=== PATIENT | male | born 1970 ===

== ENCOUNTER 2017-01-15 17:48 | Inpatient (IN) | payer BC, OTHER ==
[~2017-01-15] VITALS: Ht 177.8 cm; Wt 87.0 kg
[2017-01-15] MEDS ORDERED: ACETAMINOPHEN 325 MG TAB PO PRN (20:00)
[2017-01-15] MEDS ORDERED: HYDROCODONE/APAP (5/325) TAB PO PRN ×2 (20:00)
[2017-01-15] MEDS ORDERED: SENNA TAB PO PRN (20:00)
[2017-01-15 20:01] VITALS: Ht 177.8 cm; Wt 87.0 kg
[2017-01-15] MEDS: DOCUSATE SODIUM 100 MG CAP PO SCH (20:59)
[2017-01-15] MEDS: LEVETIRACETAM 500 MG TAB PO SCH (20:59)
[2017-01-15 21:03] VITALS: BP 122/82; PULSE 84; RESP 18
[2017-01-15] MEDS: METOPROLOL 25 MG TAB PO SCH (21:05)
[2017-01-15 22:34] LABS: ADD UMIC NO; URINE BILIRUBIN (Dip) NEGATIVE (NEGATIVE); URINE BLOOD (Dip) NEGATIVE (NEGATIVE); URINE COLOR LT. YELLOW (YELLOW); URINE GLUCOSE (Dip) NEGATIVE (NEGATIVE); URINE KETONES (Dip) NEGATIVE (NEGATIVE); URINE LEUKOCYTE ESTERASE (Dip) NEGATIVE (NEGATIVE); URINE NITRITE (Dip) NEGATIVE (NEGATIVE); URINE TOTAL PROTEIN (Dip) NEGATIVE (NEGATIVE); URINE UROBILINOGEN (Dip) 1.0 E.U./dL (0.1-1.0)
[2017-01-16 07:30] VITALS: BP 126/86; RESP 18
[2017-01-16 07:48] LABS: ADD SCAN DIFF NO
[2017-01-16 07:52] LABS: BASOPHIL # 0.1 10^3/ul (0.0-0.1); BASOPHILS % 0.7 % (0.0-2.0); EOSINOPHILS # 0.4 10^3/ul (0.0-0.5); EOSINOPHILS % 5.4 % (0.0-7.0); HEMATOCRIT 40.9 % (42.0-52.0); HEMOGLOBIN 13.6 g/dl (14.0-18.0); LYMPHOCYTES # 1.2 10^3/ul (0.8-2.9); LYMPHOCYTES % 17.6 % (15.0-51.0); MEAN CORPUSCULAR HEMOGLOBIN 30.1 pg (29.0-33.0); MEAN CORPUSCULAR HGB CONC 33.3 g/dl (32.0-37.0); MEAN CORPUSCULAR VOLUME 90.5 fl (82.0-101.0); MONOCYTE # 0.5 10^3/ul (0.3-0.9); MONOCYTES % 7.6 % (0.0-11.0); NEUTROPHIL # 4.7 10^3/ul (1.6-7.5); NEUTROPHILS % 68.3 % (39.0-77.0); PLATELET COUNT 310 10^3/UL (140-415); RED BLOOD COUNT 4.52 10^6/ul (4.70-6.10); RED CELL DISTRIBUTION WIDTH 12.1 % (11.5-14.5); WHITE BLOOD COUNT 6.9 10^3/ul (4.8-10.8)
[2017-01-16 08:08] LABS: ALBUMIN 3.6 g/dl (3.3-4.9); POTASSIUM 4.5 mmol/L (3.5-5.1)
[2017-01-16 08:11] LABS: ALBUMIN/GLOBULIN RATIO 0.83; BILIRUBIN,INDIRECT 0.4 mg/dl (0-1.1); BILIRUBIN,TOTAL 0.4 mg/dl (0.2-1.3); CREATININE 0.81 mg/dl (0.61-1.24); TOTAL PROTEIN 7.9 g/dl (6.1-8.1)
[2017-01-16] MEDS: DOCUSATE SODIUM 100 MG CAP PO SCH ×2 (09:27→20:47)
[2017-01-16] MEDS: LEVETIRACETAM 500 MG TAB PO SCH ×2 (09:27→20:47)
[2017-01-16] MEDS: LISINOPRIL 20 MG TAB PO SCH (09:27)
[2017-01-16] MEDS: METOPROLOL 25 MG TAB PO SCH ×2 (09:28→20:47)
--- NOTE | 2017-01-16 13:12 | CONS ---
DATE OF ADMISSION: 01/15/2017 DATE OF CONSULTATION: 01/16/2017 TYPE OF CONSULTATION: Rehabilitation post-admission physician evaluation REHABILITATION IMPAIRMENT CATEGORY: Acute encephalopathy/hydrocephalus status post CASKET ASSEMBLER shunt. ACTIVE COMORBIDITIES: 1. Left proximal humeral fracture, nonweightbearing. 2. Hypertension. 3. History of congenital hydrocephalus. 4. Impairments in self-care, mobility and cognition. HISTORY OF PRESENT ILLNESS: The patient is a 46-year-old gentleman with a history of congenital hy drocephalus who was noted to have left upper extremity weakness in addition to lethargy. Workup did reveal a proximal left upper extremity fracture in addition to encephalopathy. Neurosurgery was co nsulted and the patient underwent ventriculoperitoneal shunt placed on 01/11/2017. The patient's po stoperative course has been notable for pain, impairments in self-care and mobility as compared to [facility]. The patient has been cleared to transfer to the rehabilitation unit for comprehensive inte rdisciplinary rehab care. FUNCTIONAL HISTORY: Prior to recent events, he was independent in self-care tasks and mobility. Cu rrently, requires maximal assist for self-care and mobility tasks. SOCIAL HISTORY: The patient reportedly lives at home with family and hopes to return there upon dis charge. PAST MEDICAL HISTORY: 1. Congenital hydrocephalus with history of shunt placement at 3 weeks and 7 years old. 2. Hypertension. CURRENT MEDICATIONS: 1. Colace 100 mg b.i.d. 2. Levetiracetam 1 tab b.i.d. 3. Lisinopril 20 mg p.o. daily. 4. Metoprolol 25 mg b.i.d. 5. Senokot 1 tab p.o. at bedtime. ALLERGIES: NO KNOWN DRUG ALLERGIES. PHYSICAL EXAMINATION: VITAL SIGNS: The patient is currently afebrile with stable vital signs. HEENT: Extraocular motions intact. Oropharynx clear. NECK: Supple. LUNGS: Clear anteriorly. CARDIAC: S1, S2. ABDOMEN: Soft, nontender, positive bowel sounds. NEUROLOGIC: He is awake and alert and oriented to person and month. He will follow simple 1-step c ommands. He demonstrates good strength in the right upper extremity and bilateral lower extremities . Left upper extremity, he is able to wiggle fingers. PLAN: The patient has been admitted for comprehensive interdisciplinary acute rehab and is anticipa roberto to tolerate 3 hours of daily therapy in divided doses for at least 5/7 days a week. Treatment p kareen will include: 1. Physical therapy to focus on bed mobility, transfers, and household ambulation with the goal of having the patient reach standby assist level. 2. Occupational therapy to focus on hygiene, grooming, dressing, bathing, and toileting activities with the goal of having the patient reach standby assist level. 3. Speech therapy for full cognitive assessment and retraining and assessment for dysphagia with th e goal of having the patient return to baseline cognition. 4. Rehabilitation nursing for carryover of therapeutic interventions, the goal of continent of deborah l and bladder, and the goal of patient and family education with regards to the aforementioned issue s. REHABILITATION BARRIER: Left upper extremity nonweightbearing. INTERVENTION FOR BARRIER: Comprehensive interdisciplinary approach. ESTIMATED LENGTH OF STAY: 10 days. DISPOSITION GOAL: Home. I acknowledge that I performed a full physical examination on this patient within 24 hours of admiss ion to the rehabilitation unit. I believe the patient is a good candidate for comprehensive interdi sciplinary rehab care and is anticipated to make reasonable goals in a reasonable period of time as outlined above. Dictated By: ARIELLE KEEN/KELBY Conf#: [id number] DID#: [id number]
--- NOTE | 2017-01-16 13:19 | HP ---
DATE OF ADMISSION: 01/15/2017 CHIEF COMPLAINT: Encephalopathy, status post FAMILY DAY CARE WORKER shunt. Left humeral fracture. HISTORY OF PRESENT ILLNESS: This is a 46-year-old male with a past medical history of congenital hy drocephalus, status post FAMILY DAY CARE WORKER shunt, who was brought into outside hospital for left upper extremity we akness and lethargy. The patient's history begins when he was born, had placement of FAMILY DAY CARE WORKER shunt when he was 3 weeks old, and had revision at age 77 years old. Since then patient had no further revision of the shunt. Patient apparently was in his usual state of health until 1 to 2 days prior to admis clint, when he started having left shoulder pain, weakness, and apparently had a fall. The patient w as brought into an outside hospital, where he had MRI of his left upper extremity which showed fract ure of the surgical neck of the proximal humerus. Patient had a CT scan of the head which was negat vance for any intracranial hemorrhage or extraaxial fluid collection. CT scan/MRI did show brain dysm orphia. The patient was evaluated by neurosurgery, with a recommendation of a placement of a new FAMILY DAY CARE WORKER shunt. The patient had the placement of a left coronial ventriculoperitoneal shunt on 01/11/[address] without complications. Patient also had apparent orthopedic evaluation for his left hum eral fracture which was noted to be nondisplaced. As a result, no surgery was performed. During e hospital course the patient's encephalopathy clinically improved. Patient had no episodes of hemo ptysis, hematemesis, hematochezia. Patient, however, had a significant decline in his premorbid con dition. As a result he was transferred over to [facility] for continued care. Upon my evaluation, the patient at this time is currently lethargic, but alert and oriented x4. Den ies any chest pain, fevers, chills, nausea, vomiting. PAST MEDICAL HISTORY: As stated above. History of congenital hydrocephalus, history of FAMILY DAY CARE WORKER shunt pl acement, history of hypertension. PAST SURGICAL HISTORY: Status post FAMILY DAY CARE WORKER shunt placement at age 3 weeks with revision at 7 years, stat us post FAMILY DAY CARE WORKER shunt placement revision on 01/11. ALLERGIES: NO KNOWN DRUG ALLERGIES. FAMILY HISTORY: No family history of kidney disease or heart disease. SOCIAL HISTORY: Does not drink, smoke, or do drugs. MEDICATIONS: Patient's medications have been reviewed and reconciled. REVIEW OF SYSTEMS: A 14-point review of systems was conducted. Pertinent positives as stated in HP I, otherwise negative. PHYSICAL EXAMINATION: VITAL SIGNS: Blood pressure 122/82, respirations 18, pulse 84, temperature 98.5. HEENT: Head shows a left parietal craniotomy surgical site with magdaleno that are clean, dry, and in tact. Positive deformity. Pupils are reactive to light. NECK: Supple. HEART: Regular rate. LUNGS: Show diminished breath sounds at the base. ABDOMEN: Soft, nontender to palpation. No rebound or guarding. EXTREMITIES: Negative for clubbing and cyanosis. No edema. DERMATOLOGIC: No rashes. MUSCULOSKELETAL: Patient has weakness of the left upper extremity with limitations of abduction and adduction, flexion, extension. LABORATORY DATA: Sodium 142, potassium 4.5, chloride 103, BUN 16, creatinine 0.81, white count 6.9, hemoglobin 13.6, hematocrit 40.9, platelet count is 310. Patient's urinalysis is negative. Patient's outside MRI of the brain has been reviewed. MRI of the left shoulder has been reviewed. ASSESSMENT AND PLAN: This is a 46-year-old male who presents with: 1. Encephalopathy, hydrocephalus, and cerebellar tonsillar herniation. Patient is status post vent riculoperitoneal shunt placement on 01/11. Currently the patient is clinically stable. Plan at thi s point is to monitor closely. Patient will continue Keppra for seizure prophylaxis. We will monit or blood pressures and adjust medications in order to maintain systolic pressure less than 140. Claire terrell to follow up with neurosurgeon, in the outpatient setting. 2. Left upper extremity nondisplaced humeral fracture. Patient was evaluated by orthopedics. No p kareen for surgical intervention. He will continue physical therapy. 3. Hypertension. Continue current blood pressure regimen. 4. History of congenital hydrocephalus, status post ventriculoperitoneal shunt placement with caty ion. As stated above, we will continue medical management. He will follow up with neurosurgery in the outpatient setting. 5. Mild anemia. Continue to monitor hemoglobin and hematocrit levels. 6. Gastrointestinal/deep vein thrombosis prophylaxis. Continue proton pump inhibitor and sequentia l leg squeezers. 7. Constipation. Continue current bowel regimen. 8. Seizure prophylaxis. Continue Keppra. Please note, I spent up to 25 minutes of [id number]-[id number]-[id number] time with the patient . In discussing code st atus, the patient is full code. Dictated By: MILI BASS/NTS Conf#: [id number] DID#: [id number] CC: ARIELLE REILLY MD;*EndCC*
[2017-01-16] MEDS: POLYETHYLENE GLYCOL 17 GM PACKET PO PRN (15:52)
[2017-01-16 20:00] VITALS: BP 107/57; RESP 18
--- NOTE | 2017-01-16 20:14 | CONS ---
DATE OF ADMISSION: 01/15/2017 DATE OF CONSULTATION: 01/16/2017 TYPE OF CONSULTATION: Psychological. REFERRING PHYSICIAN: Cayla Bonilla MD CONSULTING PSYCHOLOGIST: Brina Sinclair, PhD REASON FOR CONSULTATION: This consultation was requested by Dr. Larisa Bonilla in order to evaluate the cognitive and emotional functioning of this patient related to his present medical condition. HISTORY OF PRESENT ILLNESS: The patient is a 46-year-old male. The patient has had some brain trau ma and had some surgery and developed some encephalopathy. The patient was cleared medically and se nt to the acute rehabilitation unit for acute multidisciplinary rehabilitation. The patient did not actually know all the things that happened to him in regard to his medical condition. The patient was just admitted to the unit last night. The patient did report that he has had some kind of seizu re. There is a question whether the patient is functioning in regard to his encephalopathy. The pa tient is motivated to get better and does want to return to his previous level of functioning and re turn home. FAMILY AND SOCIAL HISTORY: The patient reports that he lives in a home with his dad. The patient r eports that it is his father's home. He wants to return there after discharge. SUBSTANCE USE: The patient denies any use of alcohol or other drugs. The patient reports he does n ot smoke. MEDICATIONS: The patient is currently not on any psychotropic medications. MENTAL STATUS EXAMINATION: APPEARANCE: The patient was seen in his wheelchair. He appeared to be of average height and weight . The patient is left-handed. BEHAVIOR: The patient was cooperative during the consultation. The patient did attempt to answer a ll questions presented to him by the interviewer. MOOD AND AFFECT: The patient's mood appears to be slightly depressed. Affect does appear to be sli ghtly anxious. PERCEPTION: The patient reports no hallucinations or delusions. The patient was alert to person, p lace, situation and time. MEMORY AND COGNITION: The patient's memory and cognition are actually basically intact given the fa ct that he has had brain surgery and initially had encephalopathy. The patient was able to say the name of the hospital. The patient was able to say the month and the year. The patient was able to say who the tray service worker is. The patient was unable to say who the mayor [facility] is or the governor of the state. The patient, however, was able to spell "world" backwards. Th e patient was also able to do 5 serial-7 subtractions from 100, but he made an error, and then he co rrected his own error and then went 2 steps further after that correctly. Overall, given the patien t's present medical condition, the patient's cognitive abilities appear to be adequate. INTELLIGENCE: Intelligence appeared to fall in the average range. INSIGHT: Fair. JUDGMENT: Fair. THOUGHT CONTENT: The patient is concerned about his current medical condition. The patient does wa nt to return home and continue to do what he was doing prior to all his medical problems. The patie nt is motivated to get better. DISCUSSION: The patient can likely benefit from some cognitive/behavioral psychotherapy while he is on the unit. This psychotherapy would focus on his underlying level of frustration about his medic al condition. 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 Thank you very much, Dr. Larisa Bonilla, for referring this individual. Please do not hesitate to ca ll if you have additional questions. Dictated By: BRINA SINCLAIR PHD RK/KELBY Conf#: [id number] DID#: [id number]
[2017-01-17 07:21] LABS: ADD SCAN DIFF NO
[2017-01-17 07:31] LABS: BASOPHIL # 0.1 10^3/ul (0.0-0.1); BASOPHILS % 0.9 % (0.0-2.0); EOSINOPHILS # 0.3 10^3/ul (0.0-0.5); EOSINOPHILS % 3.5 % (0.0-7.0); HEMOGLOBIN 13.7 g/dl (14.0-18.0); LYMPHOCYTES # 1.5 10^3/ul (0.8-2.9); LYMPHOCYTES % 20.2 % (15.0-51.0); MEAN CORPUSCULAR HEMOGLOBIN 30.2 pg (29.0-33.0); MEAN CORPUSCULAR HGB CONC 32.6 g/dl (32.0-37.0); MEAN CORPUSCULAR VOLUME 92.5 fl (82.0-101.0); MONOCYTE # 0.6 10^3/ul (0.3-0.9); MONOCYTES % 7.8 % (0.0-11.0); NEUTROPHILS % 67.2 % (39.0-77.0); PLATELET COUNT 340 10^3/UL (140-415); RED BLOOD COUNT 4.54 10^6/ul (4.70-6.10); RED CELL DISTRIBUTION WIDTH 12.2 % (11.5-14.5); WHITE BLOOD COUNT 7.4 10^3/ul (4.8-10.8)
[2017-01-17 07:40] LABS: POTASSIUM 4.3 mmol/L (3.5-5.1)
[2017-01-17 07:43] LABS: CREATININE 0.88 mg/dl (0.61-1.24)
[2017-01-17 07:44] LABS: CALCIUM 9.2 mg/dl (8.4-10.2); MAGNESIUM 2.3 mg/dl (1.7-2.5); PHOSPHORUS 3.6 mg/dl (2.5-4.9)
[2017-01-17] MEDS: DOCUSATE SODIUM 100 MG CAP PO SCH ×2 (09:47→20:34)
[2017-01-17] MEDS: LEVETIRACETAM 500 MG TAB PO SCH ×2 (09:47→20:34)
[2017-01-17] MEDS: LISINOPRIL 20 MG TAB PO SCH (09:47)
[2017-01-17] MEDS: METOPROLOL 25 MG TAB PO SCH ×2 (09:48→20:36)
--- NOTE | 2017-01-17 09:55 | PN ---
DATE: 01/17/2017 SUBJECTIVE: The patient is stable. No acute events noted. No fevers or chills. OBJECTIVE: VITAL SIGNS: Blood pressure 107/57, respirations 18, pulse 87, temperature 98.4. HEENT: Head shows a noted craniotomy scar, noted deformity, no change. NECK: Supple. HEART: Regular rate. LUNGS: Showed diminished breath sounds at the base. ABDOMEN: Soft, nontender to palpation. No rebound or guarding. EXTREMITIES: Negative for clubbing or cyanosis. No edema. DERMATOLOGIC: No rashes. MUSCULOSKELETAL: Have no joint effusion. NEUROLOGIC: No change in exam. MEDICATIONS: The patient's medications have been reviewed. LABORATORY DATA: Shows sodium 145, potassium 4.3, BUN 17, creatinine 0.88. White count 7.4, hemogl obin 13.7, platelet count is 340. ASSESSMENT AND PLAN: 1. Encephalopathy and hydrocephalus/cerebellar tonsillar herniation. The patient is status post CLOCKMAKER APPRENTICE shunt placement on 01/11/2017. The patient is currently stable. At this point will continue the manny shoemaker treatment plan, continue Keppra for seizure prophylaxis. The patient will follow up with [facility] in the outpatient setting. Continue to monitor. 2. Left upper extremity nondisplaced fracture. The patient is weightbearing. Continue physical the rapy. 3. Hypertension. Continue the current blood pressure regimen. 4. History of congenital hydrocephalus, status post CLOCKMAKER APPRENTICE shunt placement with revision. Continue to monitor. 5. Anemia. Continue to monitor H and H levels. 6. Constipation. Continue the current bowel regimen. 7. Seizure prophylaxis. Continue Keppra. 8. Gastrointestinal and deep venous thrombosis prophylaxis. Continue PPI and sequential leg squeeze rs. 9. Mild hypernatremia. Will encourage free water intake. Dictated By: PATTIE CULVER/KELBY Conf#: [id number] DID#: [id number]
--- NOTE | 2017-01-17 12:25 | CONS ---
Date/Time of Note Date/Time of Note DATE: 01/17/17 TIME: 12:25 Consult Date/Type/Reason Admit Date/Time Jan 15, 2017 at 18:32 Initial Consult Date Subjective Feeling better today Objective pulm-cta abd-soft Vital Signs Date Time Temp Pulse Resp B/P Pulse Ox O2 Delivery O2 Flow Rate FiO2 01/16/17 20:00 98.4 87 18 107/57 97 01/15/17 21:03 Room Air Intake and Output 01/16/17 01/16/17 01/17/17 15:00 23:00 07:00 Intake Total 660 ml 500 ml Output Total 550 ml Balance 660 ml -50 ml Results/Medications Result Diagram: 01/17/17 0630 01/17/17 0630 Results 24 hrs Laboratory Tests Test 01/17/17 06:30 Anion Gap 17 H Basophils # 0.1 Basophils % 0.9 Blood Urea Nitrogen 17 Calcium Level 9.2 Carbon Dioxide Level 29 Chloride Level 103 Creatinine 0.88 Eosinophils # 0.3 Eosinophils % 3.5 Glucose Level 95 Hematocrit 42.0 Hemoglobin 13.7 L Lymphocytes # 1.5 Lymphocytes % 20.2 Magnesium Level 2.3 Mean Corpuscular Hemoglobin 30.2 Mean Corpuscular Hemoglobin Concent 32.6 Mean Corpuscular Volume 92.5 Mean Platelet Volume 10.0 Monocytes # 0.6 Monocytes % 7.8 Neutrophils # 5.0 Neutrophils % 67.2 Nucleated Red Blood Cells # 0.0 Nucleated Red Blood Cells % 0.0 Phosphorus Level 3.6 Platelet Count 340 Potassium Level 4.3 Red Blood Count 4.54 L Red Cell Distribution Width 12.2 Sodium Level 145 H White Blood Count 7.4 Medications Current Medications Acetaminophen (Tylenol Tab) 650 mg Q4H PRN PO PAIN LEVEL 1-3; Start 01/15/17 at 20:00 Acetaminophen/ Hydrocodone Bitart ([place] (5/325)) 1 tab Q4H PRN PO PAIN LEVEL 4 -6; Start 01/15/17 at 20:00 Acetaminophen/ Hydrocodone Bitart ([place] (5/325)) 2 tab Q4H PRN PO PAIN LEVEL 7 -10 Last administered on 01/16/17 15:52; Admin Dose 2 TAB; Start 01/15/17 at 20: 00 Docusate Sodium (Colace) 100 mg BID PO Last administered on 01/17/17 09:47; Admin Dose 100 MG; Start 01/15/17 at 21:00 Levetiracetam (Keppra) 500 mg BID PO Last administered on 01/17/17 09:47; Admin Dose 500 MG; Start 01/15/17 at 21:00 Lisinopril (Zestril) 20 mg DAILY PO Last administered on 01/17/17 09:47; Admin Dose 20 MG; Start 01/16/17 at 09:00 Metoprolol Tartrate (Lopressor) 25 mg BID PO Last administered on 01/17/17 09: 48; Admin Dose 25 MG; Start 01/15/17 at 21:00 Polyethylene Glycol (Miralax) 17 gm DAILY PRN PO CONSTIPATION Last administered on 01/16/17 15:52; Admin Dose 17 GM; Start 01/15/17 at 20:00 Senna (Senokot) 1 tab DAILY PRN PO CONSTIPATION; Start 01/15/17 at 20:00 Assessment/Plan Additional Assessment/Plan Rehab- Acute encephalopathy/hydrocephalus status post HEALTH TECH shunt. Continue treatment plan Left proximal humeral fracture, nonweightbearing. Hypertension. History of congenital hydrocephalus. ARIELLE REILLY MD Jan 17, 2017 12:25
[2017-01-17 16:22] VITALS: BP 140/90; RESP 16
[2017-01-17 20:04] VITALS: BP 131/80; RESP 18
[2017-01-18] MEDS: DOCUSATE SODIUM 100 MG CAP PO SCH ×2 (09:10→20:17)
[2017-01-18] MEDS: LEVETIRACETAM 500 MG TAB PO SCH ×2 (09:10→20:17)
[2017-01-18] MEDS: METOPROLOL 25 MG TAB PO SCH ×2 (09:11→20:17)
[2017-01-18] MEDS: LISINOPRIL 20 MG TAB PO SCH (09:11)
[2017-01-18 09:51] VITALS: BP 130/82; RESP 20
--- NOTE | 2017-01-18 10:06 | PN ---
DATE: 01/18/2017 01/18/2017 SUBJECTIVE: The patient is stable, no acute events overnight. No fevers, chills, nausea , vomiting. No shortness of breath. OBJECTIVE: VITAL SIGNS: Blood pressure 131/80, respirations are 18, pulse 79, temperature 98.2. HEENT: Head is normocephalic. The patient has a noted craniotomy scar. NECK: Supple. HEART: Regular rate. LUNGS: Show diminished breath sounds at the base. ABDOMEN: Soft, nontender to palpation, no rebound or guarding. EXTREMITIES: Negative for clubbing, cyanosis, no edema. DERMATOLOGIC: No rashes. MUSCULOSKELETAL: No joint effusions. NEUROLOGIC: No change in exam. MEDICATIONS: The patient's medications have been reviewed. LABORATORY DATA: Has been reviewed. No new labs. ASSESSMENT AND PLAN: 1. Hydrocephalus The patient is status post ventriculoperitoneal shunt placement on 01/11/2017. Th e patient is currently stable. Continue current medical management. Continue Keppra for seizure pr ophylaxis. The patient to follow up with neurosurgery in an outpatient setting. Continue to monito r. 2. Left upper extremity nondisplaced fracture. The patient is weightbearing. Continue physical th erapy. 3. Hypertension. Continue current blood pressure regimen. 4. History of congenital hydrocephalus status post ventriculoperitoneal shunt replacement and caty ion as stated above. 5. Anemia. Continue to monitor hemoglobin and hematocrit levels. 6. Constipation. Continue current bowel regimen. 7. Seizure prophylaxis. Continue Keppra. 8. Mild hyponatremia, resolved. 9. Gastrointestinal and deep venous thrombosis prophylaxis. Continue proton pump inhibitor and seq uential leg squeezers. Dictated By: PATTIE CULVER/KELBY Conf#: [id number] DID#: [id number]
--- NOTE | 2017-01-18 11:21 | CONS ---
Date/Time of Note Date/Time of Note DATE: 01/18/17 TIME: 11:20 Consult Date/Type/Reason Admit Date/Time Jan 15, 2017 at 18:32 Subjective Reports pain improved Objective pulm-cta min assist ambulation Vital Signs Date Time Temp Pulse Resp B/P Pulse Ox O2 Delivery O2 Flow Rate FiO2 01/18/17 09:51 97.9 76 20 130/82 96 01/15/17 21:03 Room Air Results/Medications Result Diagram: 01/17/17 0630 01/17/17 0630 Medications Current Medications Acetaminophen (Tylenol Tab) 650 mg Q4H PRN PO PAIN LEVEL 1-3; Start 01/15/17 at 20:00 Acetaminophen/ Hydrocodone Bitart ([place] (5/325)) 1 tab Q4H PRN PO PAIN LEVEL 4 -6; Start 01/15/17 at 20:00 Acetaminophen/ Hydrocodone Bitart ([place] (5/325)) 2 tab Q4H PRN PO PAIN LEVEL 7 -10 Last administered on 01/16/17 15:52; Admin Dose 2 TAB; Start 01/15/17 at 20: 00 Docusate Sodium (Colace) 100 mg BID PO Last administered on 01/18/17 09:10; Admin Dose 100 MG; Start 01/15/17 at 21:00 Levetiracetam (Keppra) 500 mg BID PO Last administered on 01/18/17 09:10; Admin Dose 500 MG; Start 01/15/17 at 21:00 Lisinopril (Zestril) 20 mg DAILY PO Last administered on 01/18/17 09:11; Admin Dose 20 MG; Start 01/16/17 at 09:00 Metoprolol Tartrate (Lopressor) 25 mg BID PO Last administered on 01/18/17 09: 11; Admin Dose 25 MG; Start 01/15/17 at 21:00 Polyethylene Glycol (Miralax) 17 gm DAILY PRN PO CONSTIPATION Last administered on 01/16/17 15:52; Admin Dose 17 GM; Start 01/15/17 at 20:00 Senna (Senokot) 1 tab DAILY PRN PO CONSTIPATION; Start 01/15/17 at 20:00 Assessment/Plan Additional Assessment/Plan Rehab- Acute encephalopathy/hydrocephalus status post INFORMATION TECHNOLOGY AUDIT MANAGER shunt. Continue rehab program Left proximal humeral fracture, nonweightbearing-brace in place Hypertension. History of congenital hydrocephalus. ARIELLE REILLY MD Jan 18, 2017 11:20
[2017-01-18 19:42] VITALS: BP 144/88; RESP 18
[2017-01-19 08:17] VITALS: BP 128/79; RESP 18
[2017-01-19] MEDS: DOCUSATE SODIUM 100 MG CAP PO SCH ×2 (08:50→20:56)
[2017-01-19] MEDS: METOPROLOL 25 MG TAB PO SCH ×2 (08:52→20:57)
[2017-01-19] MEDS: LISINOPRIL 20 MG TAB PO SCH (08:52)
[2017-01-19] MEDS: LEVETIRACETAM 500 MG TAB PO SCH ×2 (08:52→20:57)
[2017-01-19 08:56] VITALS: BP 123/74; PULSE 78; RESP 16
--- NOTE | 2017-01-19 09:32 | CONS ---
Date/Time of Note Date/Time of Note DATE: 01/19/17 TIME: 09:30 Consult Date/Type/Reason Admit Date/Time Jan 15, 2017 at 18:32 Initial Consult Date Subjective no new c/o. good uop. meds noted. brayan alcantara. Objective Vital Signs Date Time Temp Pulse Resp B/P Pulse Ox O2 Delivery O2 Flow Rate FiO2 01/19/17 08:56 78 16 123/74 97 Room Air 78 01/19/17 08:17 97.6 Intake and Output 01/18/17 01/18/17 01/19/17 15:00 23:00 07:00 Intake Total 200 ml Balance 200 ml HEENT: Head is normocephalic. The patient has a noted craniotomy scar. NECK: Supple. HEART: Regular rate. LUNGS: Show diminished breath sounds at the base. ABDOMEN: Soft, nontender to palpation, no rebound or guarding. EXTREMITIES: Negative for clubbing, cyanosis, no edema. DERMATOLOGIC: No rashes. MUSCULOSKELETAL: No joint effusions. NEUROLOGIC: No change in exam. Results/Medications Result Diagram: 01/17/1730 01/17/1730 Medications Current Medications Acetaminophen (Tylenol Tab) 650 mg Q4H PRN PO PAIN LEVEL 1-3; Start 01/15/17 at 20:00 Acetaminophen/ Hydrocodone Bitart ([place] (5/325)) 1 tab Q4H PRN PO PAIN LEVEL 4 -6; Start 01/15/17 at 20:00 Acetaminophen/ Hydrocodone Bitart ([place] (5/325)) 2 tab Q4H PRN PO PAIN LEVEL 7 -10 Last administered on 01/16/17 15:52; Admin Dose 2 TAB; Start 01/15/17 at 20: 00 Docusate Sodium (Colace) 100 mg BID PO Last administered on 01/18/17 20:17; Admin Dose 100 MG; Start 01/15/17 at 21:00 Levetiracetam (Keppra) 500 mg BID PO Last administered on 01/19/17 08:52; Admin Dose 500 MG; Start 01/15/17 at 21:00 Lisinopril (Zestril) 20 mg DAILY PO Last administered on 01/19/17 08:52; Admin Dose 20 MG; Start 01/16/17 at 09:00 Metoprolol Tartrate (Lopressor) 25 mg BID PO Last administered on 01/19/17 08: 52; Admin Dose 25 MG; Start 01/15/17 at 21:00 Polyethylene Glycol (Miralax) 17 gm DAILY PRN PO CONSTIPATION Last administered on 01/16/17 15:52; Admin Dose 17 GM; Start 01/15/17 at 20:00 Senna (Senokot) 1 tab DAILY PRN PO CONSTIPATION; Start 01/15/17 at 20:00 Assessment/Plan Chief Complaint/Hosp Course 1. Hydrocephalus The patient is status post ventriculoperitoneal shunt placement on 01/11/2017. The patient is currently stable. Continue current medical management. Continue Keppra for seizure prophylaxis. The patient to follow up with neurosurgery in an outpatient setting. Continue to monitor. 2. Left upper extremity nondisplaced fracture. The patient is weightbearing. Continue physical therapy. 3. Hypertension. Continue current blood pressure regimen. 4. History of congenital hydrocephalus status post ventriculoperitoneal shunt replacement and revision as stated above. 5. Anemia. Continue to monitor hemoglobin and hematocrit levels. 6. Constipation. Continue current bowel regimen. 7. Seizure prophylaxis. Continue Keppra. 8. Mild hyponatremia, resolved. 9. Gastrointestinal and deep venous thrombosis prophylaxis. Continue proton pump inhibitor and sequential leg squeezers. Problems: HARMONY SCHULTZ MD Jan 19, 2017 09:31
--- NOTE | 2017-01-19 09:46 | CONS ---
Date/Time of Note Date/Time of Note DATE: 01/19/17 TIME: 09:46 Consult Date/Type/Reason Admit Date/Time Jan 15, 2017 at 18:32 Subjective Comfortable Objective Vital Signs Date Time Temp Pulse Resp B/P Pulse Ox O2 Delivery O2 Flow Rate FiO2 01/19/17 08:56 78 16 123/74 97 Room Air 78 01/19/17 08:17 97.6 Intake and Output 01/18/17 01/18/17 01/19/17 15:00 23:00 07:00 Intake Total 200 ml Balance 200 ml pulm-cta abd-soft Results/Medications Result Diagram: 01/17/17 0630 01/17/17 0630 Medications Current Medications Acetaminophen (Tylenol Tab) 650 mg Q4H PRN PO PAIN LEVEL 1-3; Start 01/15/17 at 20:00 Acetaminophen/ Hydrocodone Bitart ([place] (5/325)) 1 tab Q4H PRN PO PAIN LEVEL 4 -6; Start 01/15/17 at 20:00 Acetaminophen/ Hydrocodone Bitart ([place] (5/325)) 2 tab Q4H PRN PO PAIN LEVEL 7 -10 Last administered on 01/16/17 15:52; Admin Dose 2 TAB; Start 01/15/17 at 20: 00 Docusate Sodium (Colace) 100 mg BID PO Last administered on 01/18/17 20:17; Admin Dose 100 MG; Start 01/15/17 at 21:00 Levetiracetam (Keppra) 500 mg BID PO Last administered on 01/19/17 08:52; Admin Dose 500 MG; Start 01/15/17 at 21:00 Lisinopril (Zestril) 20 mg DAILY PO Last administered on 01/19/17 08:52; Admin Dose 20 MG; Start 01/16/17 at 09:00 Metoprolol Tartrate (Lopressor) 25 mg BID PO Last administered on 01/19/17 08: 52; Admin Dose 25 MG; Start 01/15/17 at 21:00 Polyethylene Glycol (Miralax) 17 gm DAILY PRN PO CONSTIPATION Last administered on 01/16/17 15:52; Admin Dose 17 GM; Start 01/15/17 at 20:00 Senna (Senokot) 1 tab DAILY PRN PO CONSTIPATION; Start 01/15/17 at 20:00 Assessment/Plan Additional Assessment/Plan Rehab- Acute encephalopathy/hydrocephalus status post [employer] shunt. Continue rehab treatment plan Left proximal humeral fracture, nonweightbearing-brace in place Hypertension. History of congenital hydrocephalus. ARIELLE REILLY MD Jan 19, 2017 09:46
[2017-01-19] MEDS: POLYETHYLENE GLYCOL 17 GM PACKET PO PRN (12:44)
[2017-01-19 19:17] VITALS: BP 140/90; RESP 22
[2017-01-20 07:30] VITALS: BP 138/89; RESP 18
[2017-01-20 08:00] VITALS: BP 138/89; PULSE 77; RESP 18
[2017-01-20] MEDS: DOCUSATE SODIUM 100 MG CAP PO SCH ×2 (08:36→21:08)
[2017-01-20] MEDS: LEVETIRACETAM 500 MG TAB PO SCH ×2 (08:37→21:08)
[2017-01-20] MEDS: METOPROLOL 25 MG TAB PO SCH ×2 (08:37→21:08)
[2017-01-20] MEDS: LISINOPRIL 20 MG TAB PO SCH (08:37)
--- NOTE | 2017-01-20 09:48 | CONS ---
Date/Time of Note Date/Time of Note DATE: 01/20/17 TIME: 09:48 Consult Date/Type/Reason Admit Date/Time Jan 15, 2017 at 18:32 Subjective no new events comfortable. HEENT: Head is normocephalic. NECK: Supple. HEART: Regular rate. LUNGS: Show diminished breath sounds at the base. ABDOMEN: Soft, nontender to palpation without rebound or guarding. EXTREMITIES: Negative for clubbing, cyanosis. Trace edema. DERMATOLOGIC: No rashes. MUSCULOSKELETAL: No joint effusions. NEUROLOGIC: No change in exam. Objective Vital Signs Date Time Temp Pulse Resp B/P Pulse Ox O2 Delivery O2 Flow Rate FiO2 01/20/17 08:00 97.8 77 18 138/89 99 Room Air Intake and Output 01/19/17 01/19/17 01/20/17 15:00 23:00 07:00 Intake Total 1300 ml 1250 ml 1000 ml Output Total 1050 ml 1500 ml Balance 1300 ml 200 ml -500 ml Results/Medications Result Diagram: 01/17/1730 01/17/17 0630 Medications Current Medications Acetaminophen (Tylenol Tab) 650 mg Q4H PRN PO PAIN LEVEL 1-3; Start 01/15/17 at 20:00 Acetaminophen/ Hydrocodone Bitart ([place] (5/325)) 1 tab Q4H PRN PO PAIN LEVEL 4 -6; Start 01/15/17 at 20:00 Acetaminophen/ Hydrocodone Bitart ([place] (5/325)) 2 tab Q4H PRN PO PAIN LEVEL 7 -10 Last administered on 01/16/17 15:52; Admin Dose 2 TAB; Start 01/15/17 at 20: 00 Docusate Sodium (Colace) 100 mg BID PO Last administered on 01/20/17 08:36; Admin Dose 100 MG; Start 01/15/17 at 21:00 Levetiracetam (Keppra) 500 mg BID PO Last administered on 01/20/17 08:37; Admin Dose 500 MG; Start 01/15/17 at 21:00 Lisinopril (Zestril) 20 mg DAILY PO Last administered on 01/20/17 08:37; Admin Dose 20 MG; Start 01/16/17 at 09:00 Metoprolol Tartrate (Lopressor) 25 mg BID PO Last administered on 01/20/17 08: 37; Admin Dose 25 MG; Start 01/15/17 at 21:00 Polyethylene Glycol (Miralax) 17 gm DAILY PRN PO CONSTIPATION Last administered on 01/19/17 12:44; Admin Dose 17 GM; Start 01/15/17 at 20:00 Senna (Senokot) 1 tab DAILY PRN PO CONSTIPATION; Start 01/15/17 at 20:00 Assessment/Plan Chief Complaint/Hosp Course 1. Hydrocephalus The patient is status post ventriculoperitoneal shunt placement on 01/11/2017. The patient is currently stable. Continue current medical management. Continue Keppra for seizure prophylaxis. The patient to follow up with neurosurgery in an outpatient setting. Continue to monitor. 2. Left upper extremity nondisplaced fracture. The patient is weightbearing. Continue physical therapy. 3. Hypertension. Continue current blood pressure regimen. 4. History of congenital hydrocephalus status post ventriculoperitoneal shunt replacement and revision as stated above. 5. Anemia. Continue to monitor hemoglobin and hematocrit levels. 6. Constipation. Continue current bowel regimen. 7. Seizure prophylaxis. Continue Keppra. 8. Mild hyponatremia, resolved. 9. Gastrointestinal and deep venous thrombosis prophylaxis. Continue proton pump inhibitor and sequential leg squeezers. Problems: HARMONY SCHULTZ MD Jan 20, 2017 09:48
[2017-01-20 19:29] VITALS: RESP 23
[2017-01-20 19:34] VITALS: BP 133/84; RESP 20
[2017-01-21 08:00] VITALS: BP 134/86; PULSE 74; RESP 20
[2017-01-21] MEDS: METOPROLOL 25 MG TAB PO SCH ×2 (08:34→20:43)
[2017-01-21] MEDS: LISINOPRIL 20 MG TAB PO SCH (08:34)
[2017-01-21] MEDS: DOCUSATE SODIUM 100 MG CAP PO SCH ×2 (08:34→20:40)
[2017-01-21] MEDS: LEVETIRACETAM 500 MG TAB PO SCH ×2 (08:34→20:40)
--- NOTE | 2017-01-21 09:35 | PN ---
DATE: 01/21/2017 SUBJECTIVE: The patient is stable. Denies any fevers, chills, nausea, vomiting. The patient is co mfortable at rest, is saturating well. No chest pain. OBJECTIVE: VITAL SIGNS: Blood pressure 134/86, respirations 20, pulse 76, temperature 98.0. HEENT: Head shows a history of previous craniotomy scar that well healing. NECK: Supple. HEART: Regular rate. LUNGS: Show diminished breath sounds at the base, otherwise clear. ABDOMEN: Soft, nontender to palpation. No rebound or guarding. EXTREMITIES: Negative for clubbing, cyanosis, no edema. DERMATOLOGIC: No rashes. MUSCULOSKELETAL: No joint effusions. NEUROLOGIC: No change in exam. MEDICATIONS: Reviewed. LABORATORY DATA: Has been reviewed. No new labs. ASSESSMENT AND PLAN: 1. Hydrocephalus. The patient is status post ventriculoperitoneal shunt placement on 01/11/2017. The patient is currently stable. Continue current medical management. Continue Keppra for seizure prophylaxis. 2. Left upper extremity nondisplaced fracture. The patient is nonweightbearing. Continue immobili zation. Continue physical therapy. 3. Hypertension. Continue current blood pressure regimen. 4. History of hydrocephalus, status post ventriculoperitoneal shunt with revision. 5. Status post anemia. Continue to monitor hemoglobin and hematocrit levels. 6. Constipation. Continue current bowel regimen. 7. Seizure prophylaxis. Continue Keppra. 8. Gastrointestinal and deep venous thrombosis prophylaxis. Continue proton pump inhibitor and seq uential leg squeezers. Dictated By: PATTIE CULVER/KELBY Conf#: [id number] DID#: [id number]
--- NOTE | 2017-01-21 11:37 | CONS ---
Date/Time of Note Date/Time of Note DATE: 01/21/17 TIME: 11:36 Consult Date/Type/Reason Admit Date/Time Jan 15, 2017 at 18:32 Subjective Feeling better Objective Vital Signs Date Time Temp Pulse Resp B/P Pulse Ox O2 Delivery O2 Flow Rate FiO2 01/21/17 08:00 98.0 74 20 134/86 95 Room Air Intake and Output 01/20/17 01/20/17 01/21/17 15:00 23:00 07:00 Intake Total 1420 ml 500 ml Balance 1420 ml 500 ml INTERDISCIPLINARY TEAM CONFERENCE BOWEL- Cont BLADDER-Cont SKIN- intact OT- DRESSING-min BATHING-min TOILETING-min PT- BED MOBILITY-min TRANSFERS-min AMBULATION-min 150 feet SPEECH- COGNITION-mod A/P- Interdisciplinary team conference held today. Please see interdisciplinary sheet. Working toward d.c. on 01/22 with post discharge follow up of physical therapy, occupational therapy. Results/Medications Result Diagram: 01/17/17 0630 01/17/17 0630 Medications Current Medications Acetaminophen (Tylenol Tab) 650 mg Q4H PRN PO PAIN LEVEL 1-3; Start 01/15/17 at 20:00 Acetaminophen/ Hydrocodone Bitart ([place] (5/325)) 1 tab Q4H PRN PO PAIN LEVEL 4 -6; Start 01/15/17 at 20:00 Acetaminophen/ Hydrocodone Bitart ([place] (5/325)) 2 tab Q4H PRN PO PAIN LEVEL 7 -10 Last administered on 01/16/17 15:52; Admin Dose 2 TAB; Start 01/15/17 at 20: 00 Docusate Sodium (Colace) 100 mg BID PO Last administered on 01/21/17 08:34; Admin Dose 100 MG; Start 01/15/17 at 21:00 Levetiracetam (Keppra) 500 mg BID PO Last administered on 01/21/17 08:34; Admin Dose 500 MG; Start 01/15/17 at 21:00 Lisinopril (Zestril) 20 mg DAILY PO Last administered on 01/21/17 08:34; Admin Dose 20 MG; Start 01/16/17 at 09:00 Metoprolol Tartrate (Lopressor) 25 mg BID PO Last administered on 01/21/17 08: 34; Admin Dose 25 MG; Start 01/15/17 at 21:00 Polyethylene Glycol (Miralax) 17 gm DAILY PRN PO CONSTIPATION Last administered on 01/19/17 12:44; Admin Dose 17 GM; Start 01/15/17 at 20:00 Senna (Senokot) 1 tab DAILY PRN PO CONSTIPATION; Start 01/15/17 at 20:00 ARIELLE REILLY MD Jan 21, 2017 11:37
[2017-01-21 19:45] VITALS: BP 126/80; RESP 19
[2017-01-22 06:27] LABS: ADD SCAN DIFF NO
[2017-01-22 06:34] LABS: BASOPHILS % 0.6 % (0.0-2.0); EOSINOPHILS # 0.2 10^3/ul (0.0-0.5); EOSINOPHILS % 2.6 % (0.0-7.0); HEMATOCRIT 39.4 % (42.0-52.0); HEMOGLOBIN 13.2 g/dl (14.0-18.0); LYMPHOCYTES # 1.5 10^3/ul (0.8-2.9); LYMPHOCYTES % 22.1 % (15.0-51.0); MEAN CORPUSCULAR HEMOGLOBIN 30.6 pg (29.0-33.0); MEAN CORPUSCULAR HGB CONC 33.5 g/dl (32.0-37.0); MEAN CORPUSCULAR VOLUME 91.2 fl (82.0-101.0); MEAN PLATELET VOLUME 9.7 fl (7.4-10.4); MONOCYTE # 0.5 10^3/ul (0.3-0.9); MONOCYTES % 6.9 % (0.0-11.0); NEUTROPHIL # 4.5 10^3/ul (1.6-7.5); NEUTROPHILS % 67.3 % (39.0-77.0); PLATELET COUNT 402 10^3/UL (140-415); RED BLOOD COUNT 4.32 10^6/ul (4.70-6.10); WHITE BLOOD COUNT 6.7 10^3/ul (4.8-10.8)
[2017-01-22 06:58] LABS: POTASSIUM 4.5 mmol/L (3.5-5.1)
[2017-01-22 07:00] LABS: CREATININE 0.9 mg/dl (0.61-1.24)
[2017-01-22 07:01] LABS: PHOSPHORUS 3.5 mg/dl (2.5-4.9)
[2017-01-22 07:02] LABS: MAGNESIUM 2.1 mg/dl (1.7-2.5)
[2017-01-22 08:26] VITALS: BP 142/80; RESP 18
[2017-01-22] MEDS: DOCUSATE SODIUM 100 MG CAP PO SCH (08:31)
[2017-01-22] MEDS: LISINOPRIL 20 MG TAB PO SCH (08:31)
[2017-01-22] MEDS: LEVETIRACETAM 500 MG TAB PO SCH (08:32)
[2017-01-22] MEDS: METOPROLOL 25 MG TAB PO SCH (08:32)
--- NOTE | 2017-01-22 09:06 | PN ---
DATE: 01/22/2017 SUBJECTIVE: The patient is stable, no acute events overnight. No fevers, chills, nausea, vomiting. OBJECTIVE: VITAL SIGNS: Blood pressure 142/80, respiration 18, pulse 65, temperature 98.0. HEENT: Head is normocephalic. NECK: Supple. HEART: Regular rate. LUNGS: Show diminished breath sounds at the base. ABDOMEN: Soft, nontender to palpation. No rebound or guarding. EXTREMITIES: Negative for clubbing, cyanosis, no edema. DERMATOLOGIC: No rashes. MUSCULOSKELETAL: No joint effusions. NEUROLOGIC: No change in exam. MEDICATIONS: The patient's medications have been reviewed. LABORATORY DATA: Shows a sodium 145, potassium 4.5, BUN 19, creatinine 0.90. White count 6.7, hemo globin 13.2, hematocrit 39.4, platelet count is 402. ASSESSMENT AND PLAN: 1. Hydrocephalus status post ventriculoperitoneal shunt placement January 11. The patient is cu rrently stable. Continue medical management. 2. Left upper extremity nondisplaced fracture. The patient is nonweightbearing. Continue immobili zation. 3. Hypertension. Continue current blood pressure regimen. 4. History of hydrocephalus status post ventriculoperitoneal shunt revision. 5. Anemia. Hemoglobin level stable. Continue to monitor. 6. Hypernatremia. Continue current free water intake. 7. Seizure disorder. Continue Keppra. 8. Constipation. Continue current bowel regimen. 9. Gastrointestinal and deep venous thrombosis prophylaxis. Continue PPI, sequential leg squeezers . Dictated By: PATTIE CULVER/KEBLY Conf#: [id number] DID#: [id number]
== END 2017-01-22 14:30 | disposition home health service (06) | DRG 70 ==
LOC: VRC 18:32
PROVIDERS: ADMIT Physical Medicine & Rehabilitation; ATTEND Internal Medicine Nephrology
DX: G93.49 Other encephalopathy (principal); G93.5 Compression of brain; E87.0 Hyperosmolality and hypernatremia; I10 Essential (primary) hypertension; Q03.9 Congenital hydrocephalus, unspecified; Z74.09 Other reduced mobility; S42.215D Unspecified nondisplaced fracture of surgical neck of left humerus, subsequent encounter for fracture with routine healing; Z91.81 History of falling; K59.00 Constipation, unspecified; F06.31 Mood disorder due to known physiological condition with depressive features
CPT/HCPCS: 80048; 80053; 81003; 83735; 84100; 85025; 87081; 87086; 92507; 92523; 92610; 95852; 97110; 97112; 97116; 97150; 97162; 97167; 97530; 97535